=== PATIENT | female | born 1955 | race Caucasian/White ===

== ENCOUNTER → 2018-02-12 | Outpatient (CLI) | payer OTHER ==
--- NOTE | 2018-02-14 10:18 | MAM ---
EXAM DESCRIPTION: 3D Screening BILATERAL : Digital Mammography. CLINICAL HISTORY: 62 years Female SCREENING . No complaints. No family history of breast cancer. Childbirth. Hysterectomy. No HRT. COMPARISON: Baseline study at this facility. No prior reports available. TECHNIQUE: Bilateral CC and MLO projection full-field images, 3-D tomosynthesis digital mammographic technique. CAD not utilized. FINDINGS: The breast parenchymal density pattern is: Heterogeneously dense breast tissue, which may obscure small masses. No skin thickening or nipple retraction. Bilateral vascular calcifications. Bilateral solitary calcifications. Group of heterogeneous calcifications in the middle third of the left breast at the 100 clock position approximately 6 cm from the nipple. Possibly associated with soft tissue mass. No new focal, stellate mass or density, focal asymmetry , and no suspicious microcalcifications right breast. IMPRESSION: BI-RADS CATEGORY: 0 - INCOMPLETE- Need additional imaging evaluation. FOLLOW-UP: Recall for additional imaging: Bilateral 3-D tomosynthesis full field LM images. Spot magnification of the region of interest in the mid left breast CC and LM projections. Follow-up targeted left breast ultrasound if indicated by diagnostic images.. Written communication concerning the IMPRESSION and Follow-up, will be mailed to the patient and referring health care provider. Electronically signed by: Nate Romero MD 02/14/2018 10:17 AM CDT
== END ==
LOC: LAB.O 16:39
PROVIDERS: ATTEND Family Medicine
DX: Z12.31 Encounter for screening mammogram for malignant neoplasm of breast (principal); E11.9 Type 2 diabetes mellitus without complications; E78.5 Hyperlipidemia, unspecified; E55.9 Vitamin D deficiency, unspecified; D51.3 Other dietary vitamin B12 deficiency anemia; I10 Essential (primary) hypertension; G50.0 Trigeminal neuralgia; B02.9 Zoster without complications; B02.30 Zoster ocular disease, unspecified

== ENCOUNTER → 2018-06-19 | Outpatient (CLI) | payer OTHER ==
--- NOTE | 2018-06-20 16:10 | MAM ---
EXAM DESCRIPTION: 3D Diagnostic, Left: Digital Mammography CLINICAL HISTORY: 63 yearsFemaleABN MAMMO . Microcalcifications left breast. Patient did not return for diagnostic mammography of the left breast until this date. (Screening mammography February 2018). No complaints. No personal or family history of breast cancer. Hysterectomy. Childbirth. No HRT.. Lifetime risk of developing breast cancer (Tyrer-Cuzick model) percentage is 5. COMPARISON: Bilateral screening digital breast tomosynthesis 02/12/2018.. No prior reports available.. TECHNIQUE: Left LM projection full-field images, digital mammographic tomosynthesis technique. 2-D digital full field MLO image. Digital Magnification of the central posterior left breast CC and LM projections. CAD not utilized. FINDINGS: Left breast parenchymal density pattern is: Heterogeneously dense breast tissue, which may obscure small masses. Vascular calcifications and coarse and my micro-calcifications. Focal group of round calcifications, very small, 6:00 position of the middle third of the left breast. Calcifications of different sizes but predominantly round. IMPRESSION: BI-RADS CATEGORY: 3 - PROBABLY BENIGN. Management: Short interval (6-month) follow-up diagnostic digital left breast mammography.. The FINDINGS and the FOLLOW-UP plan were reviewed in person with the patient after the examination. Written communication explaining the IMPRESSION and FOLLOW-UP will be mailed to the patient and referring care provider. Electronically signed by: Nate Romero MD 06/20/2018 4:09 PM OUTSIDE RIGGER
== END ==
LOC: MAMMO 14:16
PROVIDERS: ATTEND Family Medicine
DX: R92.8 Other abnormal and inconclusive findings on diagnostic imaging of breast (principal)
CPT/HCPCS: 77065; G0279

== ENCOUNTER → 2018-07-08 | Outpatient (CLI) | payer OTHER ==
--- NOTE | 2018-07-09 12:56 | MRI ---
Study: MRI of the Right Ankle. Indication: RIGHT ANKLE PAIN Technique: Multiplanar, multi sequence MRI of the right ankle was obtained without intravenous contrast. Comparison: Right ankle radiographs March 21, 2018. Findings: High-grade interstitial effectively full-thickness tearing distal Achilles tendon from its insertion site noted with only minimal peripheral fibers maintaining continuity to the insertion. Majority of the torn tendon bulk is proximally retracted by 6 cm. Retracted tendon bulk is markedly expanded measuring up to 15 mm AP indicating a background of high-grade tendinosis. Mild calcaneal spurring at Achilles insertion with mild internal marrow edema. Avulsed millimetric ossific fragments likely present within the retracted tendon. Moderate plantar calcaneus heel spur. Chronic thickening origin central cord plantar fascia without active inflammation. No acute fracture. Ankle mortise alignment normal. Trace tenosynovitis medial tendons. Subtle insertional posterior tibialis tendinosis noted with mild marrow edema in the underlying medial margin of the talar head/neck which may be avulsive in etiology. Cornuate configuration navicular bone noted. Trace tenosynovitis peroneal tendons without tear. Anterior tendons intact. Prior sprains of the anterior talofibular ligament and deep deltoid ligament noted with millimetric ossifications in their expected locations. No acute fluid filled tear of the medial or lateral ankle ligaments. Scattered subcutaneous edema throughout the ankle. Scattered mild osteoarthritic changes throughout the midfoot with changes most pronounced at the navicular-intermediate cuneiform and talonavicular joint where there are moderate osteoarthritic changes along the dorsal margin of the joint line. Mild tibiotalar joint osteoarthritis with minimal grade 4 chondral loss and subchondral marrow change at the lateral margin talar dome. Impression: High grade interstitial, effectively full-thickness tearing of the distal Achilles tendon from its insertion site with 6 cm of proximal tendon retraction. Additional findings as above. Electronically signed by: Tim Dowd MD 07/09/2018 12:55 PM [employer]
== END ==
LOC: MRI 14:34
PROVIDERS: ATTEND Family Medicine
DX: S86.011A Strain of right Achilles tendon, initial encounter (principal); M25.571 Pain in right ankle and joints of right foot

== ENCOUNTER 2020-09-05 11:09 | Emergency (ER) | payer BC, OTHER ==
[2020-09-05] MEDS ORDERED: SODIUM CHLORIDE 0.9% (FLUSH) 10 ML SYG IV PRN (11:21)
[2020-09-05 11:29] VITALS: O2SAT 97
--- NOTE | 2020-09-05 11:59 | CT ---
EXAM: CT HEAD WITHOUT CONTRAST HISTORY: stroke. TECHNIQUE: CT of the head was obtained without contrast. The CT exam was performed using one or more of the following dose reduction techniques: Automated exposure control, adjustment of the mA and/or kV according to patient size, and/or use of iterative reconstruction technique. COMPARISON: None. FINDINGS: Parenchyma: No mass, acute hemorrhage or CT evidence of large acute vascular territory insult. Moderate size acute nonhemorrhagic infarct posteriorly in the left temporal lobe and adjacent left parietal lobe. No hemorrhagic conversion. Small remote right occipital lobe infarct. Ventricles: Normal in size and configuration. No hydrocephalus. Extra-axial spaces: No masses or fluid collections. Dural sinuses: No abnormal densities. Paranasal sinuses/Mastoid air cells: Mild mucosal thickening in the left maxillary sinus. Scalp/Skull: No abnormalities. IMPRESSION: 1. Moderate size acute nonhemorrhagic infarct in the left temporal and parietal lobes. 2. Small remote right occipital lobe infarct. ASPECTS: 02/12. Electronically signed by: Naseem Morley MD 09/05/2020 11:58 AM [employer]
--- NOTE | 2020-09-05 12:05 | RAD ---
TECHNIQUE: Chest,1 View Chest radiograph, AP 1 view. HISTORY: MAIN ams COMPARISON: Chest x-ray March 07, 2013. FINDINGS: Lungs/Pleura: Hypoaerated lungs accentuate the pulmonary markings and cardiac silhouette. There is no pneumothorax. There is no consolidation. No blunting of the costophrenic angles to suggest effusions. Mediastinum, Marian: Unremarkable. Heart: Cardiac silhouette is within normal limits. Bones: No suspicious osseous lesions. Soft Tissues: Unremarkable. Other: None. IMPRESSION: * No acute cardiopulmonary findings. Electronically signed by: Eladio Randle 09/05/2020 12:03 PM [facility]
--- NOTE | 2020-09-05 12:06 | ED.PDOC ---
History of Present Illness - General Chief Complaint: Neuro Symptoms/Deficits Stated Complaint: confused speech Time Seen by Provider: 09/05/20 11:11 Source: patient, RN notes reviewed, Vital Signs reviewed Exam Limitations: clinical condition - History of Present Illness Initial Comments: 65 yo F with hx of HTN comes in with the c/c of can't find words. 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 Went to rest, woke up still not able to find words, difficulty speaking. Denies weakness, numbness, difficulty walking. Timing/Duration: other - 9 hours Severity: moderate Improving Factors: nothing Worsening Factors: other - talking Associated Symptoms: slurred speech Allergies/Adverse Reactions: Allergies Codeine Allergy (Verified 01/09/16 14:09) Home Medications: Ambulatory Orders Ascorbic Acid [Vitamin C] 500 mg PO DAILY 01/09/16 Aspirin [Aspirin Adult Low Dose] 81 mg PO DAILY 01/09/16 B-Complex W/ Folic Acid [B Complex] 1 tab PO DAILY 01/09/16 Bisoprolol & Hydrochlorothiazi [Bisoprolol Fumarate/[place] 5-6.25 mg] 1 tab PO DAILY 01/09/16 Diazepam [Valium] 5 mg PO BID PRN 01/09/16 Diclofenac Sodium [Voltaren] 75 mg PO BID 01/09/16 Famciclovir [Famvir] 500 mg PO TID #21 tab 01/09/16 Gabapentin 300 mg PO TID 01/09/16 HYDROcodone 5MG/APAP 325MG [[place] 5/325] 1 tab PO Q4H PRN 01/09/16 Lamotrigine 3 - 4 mg PO BID 01/09/16 Multiple Vitamins W/ Minerals [Multivital] 1 tab PO DAILY 01/09/16 Naproxen Sodium 220 mg PO PRN 01/09/16 Pramipexole Dihydrochloride [Pramipexole Dihydrochlori] 0.25 mg PO BEDTIME 01/09/16 Tramadol HCl 50 mg PO Q6H PRN 01/09/16 Zolpidem Tartrate [Ambien] 10 mg PO BEDTIME 01/09/16 diphenhydrAMINE HCL [Benadryl] 50 mg PO BEDTIME 01/09/16 Review of Systems - Review of Systems Constitutional: Denies: chills, fever EENTM: Denies: blurred vision, mouth pain Respiratory: Denies: cough, short of breath Cardiology: Denies: chest pain, palpitations Gastrointestinal/Abdominal: Denies: abdominal pain, nausea, vomiting Genitourinary: Denies: dysuria Musculoskeletal: Denies: back pain, joint pain, muscle pain Skin: Denies: rash Neurological: States: see HPI. Denies: headache, numbness, pre-existing deficit, seizure, weakness Endocrine: Denies: unexplained weight gain, unexplained weight loss Hematologic/Lymphatic: Denies: blood clots, easy bleeding, easy bruising Past Medical History (General) - Patient Medical History Hx Seizures: No Hx Stroke: No Hx Dementia: No Hx Asthma: No Hx of COPD: No Hx Cardiac Disorders: No Hx Congestive Heart Failure: No Hx Pacemaker: No Hx Hypertension: Yes Hx Thyroid Disease: No Hx Diabetes: No Hx Gastroesophageal Reflux: No Hx Renal Disease: No Hx of HIV: No Hx MRSA: No - Vaccination History Hx Influenza Vaccination: No Hx Pneumococcal Vaccination: No - Social History Hx Tobacco Use: Yes - quit in 1989 Hx Alcohol Use: No Hx Substance Use: No Hx Substance Use Treatment: No Hx Depression: No Family Medical History - Family History Mother Family History: Unknown Living Status: Unknown Hx Family Stroke: Yes Physical Exam - Physical Exam General Appearance: Alert, Comfortable, No apparent distress, Well Developed, Well Groomed, Well Hydrated, Well Nourished Eye Exam: bilateral normal ENT Exam: normal ENT inspection, hearing grossly normal, TMs normal Neck: non-tender, full range of motion, supple, normal inspection Respiratory: chest non-tender, lungs clear, normal breath sounds, no respiratory distress, no accessory muscle use Cardiovascular/Chest: normal peripheral pulses, regular rate, rhythm, no edema, no gallop, no JVD, no murmur Peripheral Pulses: radial,right: 2+, radial,left: 2+ Gastrointestinal/Abdominal: normal bowel sounds, non tender, soft, no organ omegaly, no pulsatile mass Back Exam: normal inspection, no CVA tenderness, no vertebral tenderness Extremities Exam: non-tender, normal range of motion, no evidence of injury, no edema 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 Coordination/Gait: normal finger to nose, normal gait, negative Romberg's sign Motor/Sensory: no motor deficit, no sensory deficit, no pronator drift Skin Exam: normal color, warm/dry Progress - Progress Progress: 09/05/20 12:30 NIH score 2 no ICH will give aspirin. will allow permissive htn. Will order CTA head/neck. Will give IVF due to Cr 1.45, unsure what her baseline is, no prior labs to compare. Head CT: 1. Moderate size acute nonhemorrhagic infarct in the left temporal and parietal lobes. 2. Small remote right occipital lobe infarct. 09/05/20 12:36 Neck CTA: 1. No significant stenosis of the carotid or vertebral arteries in the neck. 2. Probable multinodular goiter. This can be further assessed with a nonemergent thyroid ultrasound. Head CTA: 1. No major intracranial branch vessel occlusion or aneurysm. 2. Moderate to severe stenosis in the right posterior cerebral artery proximally. Mild diffuse stenosis in the left posterior cerebral artery. The data reviewed when caring for this patient included: nurse notes, prior rec ords, etc. The history and assessments from nurses notes were reviewed and considered, and the patient's home medication list was also reviewed and considered. My assessment and the results of testing completed here in the ED were discussed with the patient/family. All questions were answered, and they express understanding of my assessment and the plan. patient was transferred to [employer] in stable condition. Shanelle Fairchild DO #[id number] - Results/Orders Results/Orders: 09/05/20 11:21 Sodium Chloride 0.9% (Flush) [Saline Flush Syringe] 10 ml IV PRN PRN 09/05/20 11:30 EKG STAT 09/05/20 12:09 CTA Head [CT] Stat CTA Neck [CT] Stat 09/05/20 12:10 Sodium Chloride 0.9% 1000ML [Ns 1000 ml] 1,000 ml IVS ONCE Laboratory Results WBC 7.6 K/mm3 (4.8-10.8) 09/05/20 11:31 RBC 4.41 M/mm3 (4.20-5.40) 09/05/20 11:31 Hgb 13.1 gm/dL (12.0-16.0) 09/05/20 11:31 Hct 38.6 % (36.0-47.0) 09/05/20 11:31 MCV 87.6 fl (81.0-99.0) 09/05/20 11:31 MCH 29.7 pg (27.0-31.0) 09/05/20 11:31 MCHC 33.9 g/dL (33.0-37.0) 09/05/20 11:31 RDW 13.0 % (11.5-14.5) 09/05/20 11:31 Plt Count 190 K/mm3 (130-400) 09/05/20 11:31 MPV 8.7 fl (7.40-10.4) 09/05/20 11:31 Absolute Neuts (auto) 5.30 K/uL (1.8-6.8) 09/05/20 11: Absolute Lymphs (auto) 1.40 K/uL (1.0-3.4) 09/05/20 11:31 Absolute Monos (auto) 0.70 K/uL (0.2-0.8) 09/05/20 11:31 Absolute Eos (auto) 0.20 K/uL (0.0-0.4) 09/05/20 11: Absolute Basos (auto) 0.10 K/uL (0.0-0.1) 09/05/20 11: Neutrophils % 69.9 % (42.0-78.0) 09/05/20 11: Lymphocytes % 18.3 % (20.0-50.0) L 09/05/20 11:31 Monocytes % 8.9 % (2.0-9.0) 09/05/20 11: Eosinophils % 2.1 % (1.0-5.0) 09/05/20 11: Basophils % 0.8 % (0.0-2.0) 09/05/20 11:31 PT 10.8 SECONDS (9.0-10.9) 09/05/20 11: INR 1.09 (0.9-1.15) 09/05/20 11:31 PTT (SP) 23.7 SECONDS (21.8-31.6) 09/05/20 11:31 Sodium 140 mmol/L (135-145) 09/05/20 11:31 Potassium 3.5 mmol/L (3.6-5.0) L 09/05/20 11: Chloride 106 mmol/L (101-111) 09/05/20 11:31 Carbon Dioxide 25 mmol/L (21-31) 09/05/20 11:31 Anion Gap 12.5 (12-18) 09/05/20 11:31 BUN 25 mg/dL (7-18) H 09/05/20 11:31 Creatinine 1.45 mg/dL (0.6-1.3) H 09/05/20 11:31 BUN/Creatinine Ratio 17.2 (10-20) 09/05/20 11:31 POC Glucose 117 mg/dL (70-105) H 09/05/20 11:26 Random Glucose 117 mg/dL (70-105) H 09/05/20 11:31 Serum Osmolality 284.8 mOsm/L (275-295) 09/05/20 11:31 Calcium 9.5 mg/dL (8.4-10.2) 09/05/20 11:31 Total Bilirubin 0.7 mg/dL (0.2-1.0) 09/05/20 11:31 AST 31 IU/L (10-42) 09/05/20 11:31 ALT 35 IU/L (10-60) 09/05/20 11:31 Alkaline Phosphatase 91 IU/L (42-121) 09/05/20 11:31 Creatine Kinase 128 IU/L (26-140) 09/05/20 11:31 CK-MB (CK-2) 5.0 ng/mL (0.0-4.4) H* 09/05/20 11:31 CK-MB (CK-2) % Not Reportable 09/05/20 11:31 Troponin I < 0.02 ng/mL (0.01-0.05) 09/05/20 11:31 Serum Total Protein 7.5 gm/dL (6.4-8.2) 09/05/20 11:31 Albumin 3.9 g/dl (3.2-5.5) 09/05/20 11:31 Globulin 3.6 gm/dL (2.3-3.5) H 09/05/20 11:31 Albumin/Globulin Ratio 1.1 (1.1-1.9) 09/05/20 11:31 - EKG/XRAY/CT EKG: Sinus - hr 77 Comments: normal intervals, no acute ischemia noted. XRAY: chest - no acute cardiopulmonary pathology CT: head no ICH CT Ordered: Yes - 1201 Stroke Information - Onset of Symptoms Symptoms of Stroke: Aphasia Stroke Onset of Symptoms Date: 09/05/20 Stroke Onset of Symptoms Time: 03:20 - Contraindications t-PA Contraindication: Drug Tx Not Indicated Departure - Departure Clinical Impression: Cerebrovascular accident Qualifiers: CVA mechanism: unspecified Qualified Code(s): I63.9 - Cerebral infarction, unspecified Time of Disposition: 13:02 Disposition: Transfer to Hospital Condition: Fair Departure Forms: ED Discharge - Pt. Copy, Patient Portal Self Enrollment Referrals: RACHEL ELAM [Primary Care Provider] - 1-2 Weeks Home Medications: Ambulatory Orders Ascorbic Acid [Vitamin C] 500 mg PO DAILY 01/09/16 Aspirin [Aspirin Adult Low Dose] 81 mg PO DAILY 01/09/16 B-Complex W/ Folic Acid [B Complex] 1 tab PO DAILY 01/09/16 Bisoprolol & Hydrochlorothiazi [Bisoprolol Fumarate/[place] 5-6.25 mg] 1 tab PO DAILY 01/09/16 Diazepam [Valium] 5 mg PO BID PRN 01/09/16 Diclofenac Sodium [Voltaren] 75 mg PO BID 01/09/16 Famciclovir [Famvir] 500 mg PO TID #21 tab 01/09/16 Gabapentin 300 mg PO TID 01/09/16 HYDROcodone 5MG/APAP 325MG [[place] 5/325] 1 tab PO Q4H PRN 01/09/16 Lamotrigine 3 - 4 mg PO BID 01/09/16 Multiple Vitamins W/ Minerals [Multivital] 1 tab PO DAILY 01/09/16 Naproxen Sodium 220 mg PO PRN 01/09/16 Pramipexole Dihydrochloride [Pramipexole Dihydrochlori] 0.25 mg PO BEDTIME 01/09/16 Tramadol HCl 50 mg PO Q6H PRN 01/09/16 Zolpidem Tartrate [Ambien] 10 mg PO BEDTIME 01/09/16 diphenhydrAMINE HCL [Benadryl] 50 mg PO BEDTIME 01/09/16 Transfer to Outside Facility - Transfer Information Decision to Transfer Date: 09/05/20 Decision to Transfer Time: 11:45 Reason for Transfer: specialized care not available Accepting Facility: [facility]
[2020-09-05] MEDS ORDERED: ASPIRIN TABLET 325 MG TAB PO ONE (12:09)
[2020-09-05] MEDS ORDERED: SODIUM CHLORIDE 0.9% 1000ML 1,000 ML IVS ONE (12:10)
--- NOTE | 2020-09-05 12:57 | CT ---
EXAM: CT Angiogram Head and Neck With Contrast HISTORY: stroke. TECHNIQUE: CT angiography of the head and neck was obtained with intravenous contrast. Multiplanar reformats, MIP images, and 3D reconstructions were obtained after post-processing. CT was performed using one or more of the following dose reduction techniques: Automated exposure control, adjustment of the mA and/or kV according to patient size, and/or use of iterative reconstruction technique. COMPARISON: Head CT from today. FINDINGS: CERVICAL CTA: If present, stenosis of the carotid bulbs is measured based on NASCET criteria, i.e. area of maximal stenosis compared to the cervical ICA distal to the bulb. Aortic arch: Excluded from view. Right carotid artery: Normal common carotid artery. Approximately 30% stenosis in the carotid bulb and proximal internal carotid artery. No mid to distal stenosis. Left carotid artery: Normal common carotid artery. Mild 10% stenosis in the carotid bulb. No mid to distal ICA stenosis. Right vertebral artery: Normal. No stenosis. Left vertebral artery: Normal. No stenosis. Soft tissues: No acute abnormalities. Enlarged heterogeneous thyroid gland, likely multinodular goiter. Lung apices: Clear. Bones: No acute bone abnormality in the neck. Moderate disc degeneration and mild spinal canal stenosis at C6-C7. INTRACRANIAL CTA: Anterior circulation: Patent internal carotid arteries, M1 MCA and A1 ADRIANA segments. No major branch vessel occlusion. No aneurysm of the [place]. Posterior circulation: Patent vertebral arteries and basilar artery. Moderate stenosis throughout the right posterior cerebral artery with severe focal stenosis in the proximal P2 segment. The left posterior communicating artery arises from the anterior circulation (persistent origin). Mild diffuse stenosis throughout the left posterior cerebral artery. There is a slightly prominent draining vein extending from the right mesial temporal lobe and anterior to the superior aspect of the [place]. Towards the right cavernous sinus. Major dural venous sinuses: Normal enhancement. IMPRESSION: Neck CTA: 1. No significant stenosis of the carotid or vertebral arteries in the neck. 2. Probable multinodular goiter. This can be further assessed with a nonemergent thyroid ultrasound. Head CTA: 1. No major intracranial branch vessel occlusion or aneurysm. 2. Moderate to severe stenosis in the right posterior cerebral artery proximally. Mild diffuse stenosis in the left posterior cerebral artery. Electronically signed by: Naseem Morley MD 09/05/2020 12:56 PM [id number]
[2020-09-05 13:27] VITALS: BP 165/87; TEMP 97.9
== END 2020-09-05 13:20 | disposition short-term general hospital (02) ==
LOC: ER 11:09
DX: I63.531 Cerebral infarction due to unspecified occlusion or stenosis of right posterior cerebral artery (principal); R47.01 Aphasia; I10 Essential (primary) hypertension; Z87.891 Personal history of nicotine dependence; Z79.899 Other long term (current) drug therapy; Z79.82 Long term (current) use of aspirin; Z88.5 Allergy status to narcotic agent
CPT/HCPCS: 36415; 36416; 70450; 70496; 70498; 71045; 80053; 82550; 82553; 82948; 84484; 85025; 85610; 85730; 93005; A4216; J7030

== ENCOUNTER 2020-09-12 11:01 | Emergency (ER) | payer BC ==
[2020-09-12] MEDS ORDERED: SODIUM CHLORIDE 0.9% (FLUSH) 10 ML SYG IV PRN (11:15)
--- NOTE | 2020-09-12 11:21 | ED.PDOC ---
History of Present Illness - General Chief Complaint: Neuro Symptoms/Deficits Stated Complaint: possible stroke Time Seen by Provider: 09/12/20 11:12 Source: patient, RN notes reviewed, Vital Signs reviewed, family, old records Exam Limitations: no limitations - History of Present Illness Initial Comments: 65 yo female with PMH DM, HTN who presnts with 1 week h/o expressive aphasia and right arm weakness. Pt was seen in ED 1 week ago for expressive aphasia and had CT brain showing moderate size acute infarct in left temporal and parietal lobes. She was transferred to [facility] for neuro evaluation and evaluated for 4 days and discharged home with change in medication. Daughter states pt has had waxing and waining confusion and expressive aphasia for the past week. Also reports that she had right arm weakness last night that resolved. She denies any weakness or difficulty with her speech at this time. Daughter is concerned that her BG has been high at home with it in the 200-300 range. She was given subQ insulin in the hospital, but only on oral medications at home. Pt also tested + for COVID while in hospital last week. She denies YOUSIF, CP, SOB, fever, nausea or other concerns. Allergies/Adverse Reactions: Allergies Codeine Allergy (Verified 01/09/16 14:09) Home Medications: Ambulatory Orders Ascorbic Acid [Vitamin C] 500 mg PO DAILY 01/09/16 B-Complex W/ Folic Acid [B Complex] 1 tab PO DAILY 01/09/16 Bisoprolol & Hydrochlorothiazi [Bisoprolol Fumarate/[place] 5-6.25 mg] 1 tab PO D AILY 01/09/16 Diazepam [Valium] 5 mg PO BID PRN 01/09/16 Diclofenac Sodium [Voltaren] 75 mg PO BID 01/09/16 Gabapentin 300 mg PO TID 01/09/16 Lamotrigine 3 - 4 mg PO DAILY 01/09/16 Multiple Vitamins W/ Minerals [Multivital] 1 tab PO DAILY 01/09/16 Pramipexole Dihydrochloride [Pramipexole Dihydrochlori] 0.25 mg PO BEDTIME 01/09/16 Tramadol HCl 50 mg PO Q6H PRN 01/09/16 Zolpidem Tartrate [Ambien] 10 mg PO BEDTIME 01/09/16 Aspirin (Buffered) 325 mg [Bufferin 325 mg] 1 ea PO QD 09/12/20 Atorvastatin Calcium [Lipitor] 20 mg PO DAILY 09/12/20 Azithromycin [Zithromax] 250 mg PO DAILY 09/12/20 Glimepiride 4 mg PO DAILY 09/12/20 Lisinopril 5 mg PO DAILY 09/12/20 Metformin HCl [Metformin Hydrochloride E] 500 mg PO BID 09/12/20 Minocycline HCl [Minocin] 50 mg PO BID 09/12/20 Review of Systems - Review of Systems Constitutional: Denies: chills, fever EENTM: Denies: eye pain, blurred vision, throat pain Respiratory: Denies: cough, short of breath Cardiology: Denies: chest pain, palpitations, syncope Gastrointestinal/Abdominal: Denies: abdominal pain, nausea, vomiting Musculoskeletal: Denies: back pain, neck pain Skin: Denies: rash Neurological: States: see HPI. Denies: headache All other Systems: Reviewed and Negative Past Medical History (General) - Patient Medical History Hx Seizures: No Hx Stroke: No Hx Dementia: No Hx Asthma: No Hx of COPD: No Hx Cardiac Disorders: No Hx Congestive Heart Failure: No Hx Pacemaker: No Hx Hypertension: Yes Hx Thyroid Disease: No Hx Diabetes: No Hx Gastroesophageal Reflux: No Hx Renal Disease: No Hx of HIV: No Hx MRSA: No - Vaccination History Hx Influenza Vaccination: No Hx Pneumococcal Vaccination: No - Social History Hx Tobacco Use: Yes - quit in 1989 Hx Alcohol Use: No Hx Substance Use: No Hx Substance Use Treatment: No Hx Depression: No Family Medical History - Family History Mother Family History: Unknown Living Status: Unknown Hx Family Stroke: Yes Physical Exam - Physical Exam General Appearance: Alert, Comfortable, No apparent distress, Other - Answers questions appropriately Eye Exam: bilateral normal - PERRL ENT Exam: pharynx normal Neck: non-tender, full range of motion, supple, trachea midline Respiratory: chest non-tender, lungs clear, normal breath sounds, no respiratory distress, no accessory muscle use Cardiovascular/Chest: regular rate, rhythm, no edema, no murmur Gastrointestinal/Abdominal: non tender, soft, no pulsatile mass Back Exam: no CVA tenderness, no vertebral tenderness Extremities Exam: non-tender, normal range of motion 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 She was seen in ED with expressive aphasia [address] showed Left Temporal and Parietal lobe acute infarct. Pt was transferred to [facility] for neurologic evaluation and admitted for 4 days. She is scheduled to start speech therapy and PT. Daughter concerned her glucose was too high. She has no new deficits on my exam. Does still have some stuttering speech. Creatinine elevated today. She also was recently diagnosed with COVID. Chest xray shows bilateral interstitial opacities. She has no dyspnea or hypoxia. Not requiring supplemental O2. I have d/w pt and daughter these findings and they feel comfortable going home. They will f/u with her PCP tomorrow for continued evaluation and medication management of DM as well as referrals to neurologist and speech therapy. SRP given. - Results/Orders Results/Orders: EKG-rate 74, NSR, nml intervals, no ST abnormality CXR- EXAM: Single view chest. INDICATION: Aphasia. COMPARISON: Chest x-ray: 09/05/2020. FINDINGS: Mild worsening bilateral interstitial and airspace opacities. Heart size is stable. No pneumothorax or pleural effusion. Bones are unremarkable. IMPRESSION: Mild worsening bilateral interstitial and airspace opacities, which may represent pulmonary edema and/or pneumonia. CT BRAIN CLINICAL HISTORY: aphasia TECHNIQUE: Axial computed tomography images of the head/brain without intravenous contrast. Sagittal and coronal reformatted images were created and reviewed. This CT exam was performed using one or more of the following dose reduction techniques: automated exposure control, adjustment of the mA and/or kV according to patient size, and/or use of iterative reconstruction technique. COMPARISON: 09/05/2020 FINDINGS: Limitations: None. Brain: No interval change in nonhemorrhagic left MCA territory subacute infarct. There is mild mass effect on the left lateral ventricle without midline shift. Probable old right occipital infarct. Midline shift: None. Ventricles: No hydrocephalus. Bones/joints: No acute fracture or osseous destruction. Soft tissues: Visualized portions appear normal. Vasculature: No acute abnormality noted. Sinuses: Chronic maxillary, ethmoid and sphenoid sinus disease.. Mastoid air cells: No mastoid effusion. Orbits: Visualized portions appear normal. IMPRESSION: Stable nonhemorrhagic left MCA territory infarct with mild increased mass effect without midline shift. 09/12/20 11:30 EKG STAT Laboratory Results - last 24 hr 09/12/20 09/12/20 09/12/20 11:33 11:33 11:33 WBC 4.4 L RBC 4.28 Hgb 12.6 Hct 37.2 MCV 87.0 MCH 29.5 MCHC 33.9 RDW 13.1 Plt Count 143 MPV 9.1 Absolute Neuts (auto) 2.90 Absolute Lymphs (auto) 1.00 Absolute Monos (auto) 0.50 Absolute Eos (auto) 0.00 Absolute Basos (auto) 0.00 Neutrophils % 65.4 Lymphocytes % 22.9 Monocytes % 11.4 H Eosinophils % 0.0 L Basophils % 0.3 PT 10.6 INR 1.07 PTT (SP) 24.3 Sodium 135 Potassium 4.4 Chloride 97 L Carbon Dioxide 23 Anion Gap 19.4 H BUN 60 H Creatinine 1.89 H BUN/Creatinine Ratio 31.7 H POC Glucose Random Glucose 135 H Serum Osmolality 289.0 Calcium 8.5 Total Bilirubin 0.6 AST 42 ALT 36 Alkaline Phosphatase 66 Creatine Kinase 131 CK-MB (CK-2) 2.2 CK-MB (CK-2) % Not Reportable Troponin I 0.05 Serum Total Protein 7.5 Albumin 3.3 Globulin 4.2 H Albumin/Globulin Ratio 0.8 L 09/12/20 11:33 WBC RBC Hgb Hct MCV MCH MCHC RDW Plt Count MPV Absolute Neuts (auto) Absolute Lymphs (auto) Absolute Monos (auto) Absolute Eos (auto) Absolute Basos (auto) Neutrophils % Lymphocytes % Monocytes % Eosinophils % Basophils % PT INR PTT (SP) Sodium Potassium Chloride Carbon Dioxide Anion Gap BUN Creatinine BUN/Creatinine Ratio POC Glucose 127 H Random Glucose Serum Osmolality Calcium Total Bilirubin AST ALT Alkaline Phosphatase Creatine Kinase CK-MB (CK-2) CK-MB (CK-2) % Troponin I Serum Total Protein Albumin Globulin Albumin/Globulin Ratio Departure - Departure Clinical Impression: Expressive aphasia, COVID-19, Elevated serum creatinine CVA (cerebral vascular accident) Qualifiers: CVA mechanism: unspecified Qualified Code(s): I63.9 - Cerebral infarction, unspecified Hyperglycemia due to type 2 diabetes mellitus Qualifiers: Diabetes mellitus intermodal customer service insulin use: without intermodal customer service use Qualified Code(s): E11.65 - Type 2 diabetes mellitus with hyperglycemia Time of Disposition: 12:38 Disposition: Discharge to Home or Self Care Condition: Good Departure Forms: ED Discharge - Pt. Copy, Patient Portal Self Enrollment Instructions: Hyperglycemia, Adult (DC) Diet: resume usual diet Activity: increase activity as tolerated Referrals: RACHEL ELAM [Primary Care Provider] - 1-2 Days Home Medications: Ambulatory Orders Ascorbic Acid [Vitamin C] 500 mg PO DAILY 01/09/16 B-Complex W/ Folic Acid [B Complex] 1 tab PO DAILY 01/09/16 Bisoprolol & Hydrochlorothiazi [Bisoprolol Fumarate/[place] 5-6.25 mg] 1 tab PO DAILY 01/09/16 Diazepam [Valium] 5 mg PO BID PRN 01/09/16 Diclofenac Sodium [Voltaren] 75 mg PO BID 01/09/16 Gabapentin 300 mg PO TID 01/09/16 Lamotrigine 3 - 4 mg PO DAILY 01/09/16 Multiple Vitamins W/ Minerals [Multivital] 1 tab PO DAILY 01/09/16 Pramipexole Dihydrochloride [Pramipexole Dihydrochlori] 0.25 mg PO BEDTIME 01/09/16 Tramadol HCl 50 mg PO Q6H PRN 01/09/16 Zolpidem Tartrate [Ambien] 10 mg PO BEDTIME 01/09/16 Aspirin (Buffered) 325 mg [Bufferin 325 mg] 1 ea PO QD 09/12/20 Atorvastatin Calcium [Lipitor] 20 mg PO DAILY 09/12/20 Azithromycin [Zithromax] 250 mg PO DAILY 09/12/20 Glimepiride 4 mg PO DAILY 09/12/20 Lisinopril 5 mg PO DAILY 09/12/20 Metformin HCl [Metformin Hydrochloride E] 500 mg PO BID 09/12/20 Minocycline HCl [Minocin] 50 mg PO BID 09/12/20
[2020-09-12 11:22] VITALS: O2SAT 95
--- NOTE | 2020-09-12 11:56 | CT ---
EXAM: CT Head Without Intravenous Contrast CLINICAL HISTORY: aphasia TECHNIQUE: Axial computed tomography images of the head/brain without intravenous contrast. Sagittal and coronal reformatted images were created and reviewed. This CT exam was performed using one or more of the following dose reduction techniques: automated exposure control, adjustment of the mA and/or kV according to patient size, and/or use of iterative reconstruction technique. COMPARISON: 09/05/2020 FINDINGS: Limitations: None. Brain: No interval change in nonhemorrhagic left MCA territory subacute infarct. There is mild mass effect on the left lateral ventricle without midline shift. Probable old right occipital infarct. Midline shift: None. Ventricles: No hydrocephalus. Bones/joints: No acute fracture or osseous destruction. Soft tissues: Visualized portions appear normal. Vasculature: No acute abnormality noted. Sinuses: Chronic maxillary, ethmoid and sphenoid sinus disease.. Mastoid air cells: No mastoid effusion. Orbits: Visualized portions appear normal. IMPRESSION: Stable nonhemorrhagic left MCA territory infarct with mild increased mass effect without midline shift. Electronically signed by: Vika Rivera MD 09/12/2020 11:55 AM DIRECTOR PATIENT
--- NOTE | 2020-09-12 11:57 | RAD ---
EXAM: Single view chest. INDICATION: Aphasia. COMPARISON: Chest x-ray: 09/05/2020. FINDINGS: Mild worsening bilateral interstitial and airspace opacities. Heart size is stable. No pneumothorax or pleural effusion. Bones are unremarkable. IMPRESSION: Mild worsening bilateral interstitial and airspace opacities, which may represent pulmonary edema and/or pneumonia. Electronically signed by: Dickson Mon MD 09/12/2020 11:56 AM LATHE SPOTTER
[2020-09-12 12:58] VITALS: BP 121/70; TEMP 97.3
== END 2020-09-12 12:40 | disposition home or self-care (01) ==
LOC: ER 11:01
DX: I63.512 Cerebral infarction due to unspecified occlusion or stenosis of left middle cerebral artery (principal); R47.01 Aphasia; E11.65 Type 2 diabetes mellitus with hyperglycemia; U07.1 COVID-19; I10 Essential (primary) hypertension; R94.4 Abnormal results of kidney function studies; Z87.891 Personal history of nicotine dependence; Z79.899 Other long term (current) drug therapy; Z79.82 Long term (current) use of aspirin; Z79.84 Long term (current) use of oral hypoglycemic drugs; Z88.5 Allergy status to narcotic agent